=== PATIENT | male | born 1965 | race Caucasian/White ===

== ENCOUNTER 2019-02-28 15:56 | Emergency (ER) | payer OTHER ==
[~2019-02-28] VITALS: Ht 165.1 cm; Wt 79.1 kg
[~2019-02-28 15:56] MED LIST: AMLO-147 PO; BENA40TA56 PO; METF500T24 PO; NAPR-985 PO
[2019-02-28 16:05] VITALS: Ht 165.1 cm; Wt 79.1 kg
[2019-02-28] MEDS ORDERED: KETOROLAC 30 MG INJ IM STA (18:52)
[2019-02-28 20:15] VITALS: BP 153/99; PULSE 70; RESP 19
== END 2019-02-28 20:24 | disposition home or self-care (01) ==
LOC: E/R 15:56
DX: S29.011A Strain of muscle and tendon of front wall of thorax, initial encounter (principal); I10 Essential (primary) hypertension; E11.9 Type 2 diabetes mellitus without complications; X50.1XXA Overexertion from prolonged static or awkward postures, initial encounter; Y92.9 Unspecified place or not applicable; Z79.84 Long term (current) use of oral hypoglycemic drugs
CPT/HCPCS: 71045; 82962; 84484; 96372; J1885; Z7502; 93005